=== PATIENT | male | born 1970 | race Asian ===

== ENCOUNTER 2022-07-09 12:11 | Emergency (ER) | payer OTHER ==
[~2022-07-09] VITALS: Ht 175.3 cm; Wt 90.7 kg
[2022-07-09 13:11] VITALS: BP_SYST 152
[2022-07-09] MEDS ORDERED: LIDOCAINE 1% 10 MG/ML, 20 ML MDV INJ ONE (15:00)
[2022-07-09] MEDS ORDERED: NAPR-1172 PO (15:13)
[2022-07-09 15:21] VITALS: BP_SYST 130
== END 2022-07-09 15:24 | disposition home or self-care (01) ==
LOC: SED 12:11
DX: M75.101 Unspecified rotator cuff tear or rupture of right shoulder, not specified as traumatic (principal); M25.511 Pain in right shoulder; Z79.899 Other long term (current) drug therapy
CPT/HCPCS: 20553; 73030; 99284

== ENCOUNTER 2022-07-21 19:23 | Emergency (ER) | payer OTHER ==
[~2022-07-21] VITALS: Ht 177.8 cm; Wt 74.8 kg
[~2022-07-21 19:23] MED LIST: NAPR-1172 PO
[2022-07-21 20:24] VITALS: BP_SYST 135
--- NOTE | 2022-07-21 22:55 | NUR ---
Patient ambulatory to bed 8 for evaluation and treatment
--- NOTE | 2022-07-21 23:00 | NUR ---
ER at bedside examining patient.
--- NOTE | 2022-07-21 23:01 | NUR ---
PT bib from [employer] workers comp. clinic. CC MRI abnormal findings indicated by clinic. Pt has right shoulder pain from recent DX Tendonitis. Pt has been taking Naproxen for relief previous 10 days. Pt is on workers compensation related follow throughs. [facility] referred to ER regarding "abnormal findings" pt states MRI given to MD [place].
[2022-07-21] MEDS ORDERED: DICL100G33 TP (23:27)
--- NOTE | 2022-07-21 23:36 | NUR ---
Patient given written and verbal discharge instructions and verbalizes understanding. ER MD discussed with patient the results and treatment provided. Patient in stable condition. ID arm band removed. IV catheter removed intact and dressing applied, no active bleeding. Rx of diclofenac given. Patient educated on pain management and to follow up with PMD. Opportunity for questions provided and answered. Medication side effect fact sheet provided.
[2022-07-21 23:37] VITALS: BP_SYST 144
== END 2022-07-21 23:37 | disposition home or self-care (01) ==
LOC: SED 19:23
DX: S49.91XA Unspecified injury of right shoulder and upper arm, initial encounter (principal); Z79.899 Other long term (current) drug therapy; X50.0XXA Overexertion from strenuous movement or load, initial encounter; Y93.89 Activity, other specified; Y92.89 Other specified places as the place of occurrence of the external cause; Y99.8 Other external cause status
CPT/HCPCS: 99283